=== PATIENT | female | born 1950 | race Caucasian/White ===

== ENCOUNTER 2025-09-30 14:34 | Outpatient (AMB) | payer OTHER, SELFPAY ==
--- NOTE | 2025-09-30 14:36 | MHC.OFFVIS ---
Vital Signs 09/30/25 15:05 Height 5 ft 2 in Weight 205 lb BMI 37.5 BP 142/75 H Blood Pressure Location Rt brachial Position Sitting Pulse 98 Intake Visit Reasons: ostomy reversal 2nd opinion Speech Communication Professor Required: Yes Speech Communication Professor Language: Parker Services: Speech Communication Professor Present Speech Communication Professor Name: Stephen Information Interpreted: non-clinical & clinical Accompanied by: Grand Child Allergies lidocaine Allergy (Severe, Verified 09/30/25 15:06) Unknown morphine Allergy (Severe, Verified 09/30/25 15:06) Unknown Medication List - Last Reconciled 09/30/25 by Keith Fisher MD acetaminophen ER 1,300 mg PO BID albuterol sulfate 2.5 mg inhalation Q6H albuterol sulfate 90 mcg/actuation (Ventolin HFA) 2 puffs inhalation Q4-6H PRN amlodipine 5 mg PO DAILY aspirin 81 mg PO DAILY budesonide-formoterol 160-4.5 mcg/actuation (Symbicort) 2 puffs inhalation BID cetirizine 10 mg PO DAILY PRN cholecalciferol (vitamin D3) 25 mcg PO DAILY donepezil 5 mg PO BEDTIME duloxetine 30 mg PO BID ferrous gluconate 324 mg PO DAILY gabapentin 400 mg PO TID levothyroxine (Synthroid) 25 mcg PO DAILY lisinopril 10 mg PO DAILY metformin ER (Glucophage XR) 500 mg PO QPM mineral oil-iso myristat-water 1 appl topical TID-QID PRN nebulizers As directed omeprazole 20 mg PO DAILY rosuvastatin 20 mg PO DAILY topiramate 25 mg PO DAILY HPI HPI ostomy reversal 2nd opinion: Details: [age] year old female referred for a colostomy check. Apparently had undergone surgery to remove part of her ?colon? as well as the uterus, the gallbladder and what she describes as other organs about 9 years ago in [facility]. She is uncertain as to what exactly the etiology was of her illness at that time but she did mentioned diverticulitis as well. She does state that she did not expect the other organs to be removed then. She is not a very good historian either. She says that she has had this little growth on the bottom part of her stoma which often times bleed and cause some pain and discomfort. Otherwise she says that her colostomy has been functioning well. She apparently also has a history of PEs. [facility] Medical History (Updated 09/30/25 @ 15:13 by Keith Fisher MD) Colostomy in place Grief reaction Personal history of other endocrine, nutritional and metabolic disease Severe obstructive sleep apnea Chronic rhinitis Pre-diabetes Hypertensive chronic kidney disease with stage 1 through stage 4 chronic kidney disease, or unspecified chronic kidney disease History of being hospitalized (~06/2016) History of being hospitalized (~06/2015) Hx of being hospitalized Hx of being hospitalized Osteoarthritis of knee Anxiety Hyperlipidemia Hypothyroidism Depression Obesity Spinal stenosis of lumbosacral region Atypical chest pain SHAMIR (acute kidney injury) (~06/2017) UTI (urinary tract infection) (~06/2017) Bilateral pulmonary embolism (~06/2017) Diverticulosis Migraine Asthma GERD (gastroesophageal reflux disease) Vitamin D deficiency Surgical History H/O exploratory laparotomy (~2016) Hx of surgical procedure (~08/2012) Hx of surgical procedure (~11/2011) History of right inguinal hernia repair (~06/2016) History of tonsillectomy (~1968) History of total right knee replacement (~2009) History of carpal tunnel surgery (~2013) History of bilateral tubal ligation (~1982) History of shoulder surgery (~2012) Hx of surgical procedure (~05/2017) Review of Systems Const Denies chills and Denies fever(s) Card Denies chest pain at rest Resp Denies cough GI Details: Has colostomy, functioning Denies abdominal pain Denies difficulty voiding Physical Exam Vital Signs: Last Vital Signs Pulse 98 09/30/25 15:05 BP 142/75 H 09/30/25 15:05 BMI result Body Mass Index 37.5 Const Other: Morbidly obese General: comfortable and no acute distress Resp Effort & Inspection: normal respiratory effort Cardio Rate: regular rate GI Other: Obese abdomen, ostomy in the left side, with note of multiple hypergranulation areas on the lower part, about 4-5 small polypoid areas of these hypergranulation tissue are noted Palpation (GI): Soft to palpation, not firm, nontender and no guarding Office Procedures Cauterization - Skin lesions Skin Cauter Details: There were about 4 per granulating, polypoid lesions on lower part of the stoma each about 3-4 mm in size. I proceeded to cauterized this with multiple silver nitrate sticks down to a pack eschar. She tolerated procedure well. I will see her again next month and likely we will do more cauterization Destruction: 09998- Chemical Cautery, Granulation Tissue Assessment & Plan Assessment & Plan (1) Colostomy in place: Code(s): Z93.3 - Colostomy status Category: Medical Plan: She has colostomy in place for about 8-9 years now. The diagnosis and the actual procedure done is not certain as the patient is not a good historian She complains of this ?lumps? on the lower part of the colostomy. These are hypergranulation tissue and she says that this bother her with periodic swelling I therefore cauterized this areas of hypergranulation tissue with silver nitrate sticks. She also asked about option of reversal. I explained to her that this comes with significant risks for her especially at her age and multiple medical problems. I will however review of her records in [facility]. I will see her again in the office next month and I told her that we may probably repeat cauterization of the hypergranulation tissue in the stoma opening. She seems to understand the plan well and is comfortable with this. Coding Level of Care Code New Pt Level 3 (27928) Diagnoses Colostomy in place Z93.3 CPT Codes Skin Cauter - Destruction: 09210- Chemical Cautery, Granulation Tissue ([id number])
[2025-09-30 15:05] VITALS: BP 142/75; PULSE 98; BMI 37.5
--- OUTSIDE RECORDS SUMMARY | 2025-09-30 22:58 | XMS_ITS | Clinical Summary ---
Author Organization [facility] Address [address] [place] [address] Phone Care Team Providers Care Pheresis Nurse Name Role Phone [place] Waters TERI Primary Care Provider [phone] Allergies Active Allergy Reactions Criticality Noted Date Comments Codeine Hcl 07/18/2018 Lidocaine Angioedema,Unknown High 09/14/2015 Morphine Unknown,Swelling 09/14/2015 Medications No known medications Active Problems No known active problems Encounters Date Type Department Care Team Description 09/20/2025 12:17 PM EST - 09/20/2025 4:36 PM EST Emergency [facility] Emergency [address] [place] [address] Bo Araiza MD Pre-syncope (Primary Dx) Discharge Disposition: Home or Self Care from Last 3 Months Surgical History Surgery Date Site/Laterality Comments TOTAL KNEE ARTHROPLASTY Right PROCEDURE: [place] ARTHRP KNE CONDYLE&PLATU MEDIAL&LAT COMPARTMENTS SHOULDER SURGERY Left PROCEDURE: HISTORICAL SHOULDER SURGERY TUBAL LIGATION PROCEDURE: HISTORICAL TUBAL LIGATION TONSILLECTOMY PROCEDURE: HISTORICAL TONSILLECTOMY OTHER SURGICAL HISTORY PROCEDURE: SKIN CYST; COMMENT: removal in thebackX2 Medical History Medical History Date Comments HTN (hypertension) DX:HTN (hyper tension) Hyperlipidemia DX:Hyperlipidemi a Anxiety DX:Anxiety OA (osteoarthritis) of knee DX:O A (osteoarthritis) of knee S/P total knee replacement DX:S/ P total knee replacement; COMMENT: right 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 DX:Anacliti c depression Anemia 07/13/2017 DX:Anemia Asthma 07/12/2017 DX:Asthma Gastroesophageal reflux disease 07/09/2017 DX:Gastroesophageal reflux disease Hypertension 07/09/2017 DX:Hypertension Hypothyroidism 07/09/2017 DX:Hypothyroidis m Pulmonary embolism (CMS/HCC V24, CMS/HCC V28) 07/25/2017 DX:Pulmonary embolism (HCC) Back pain, chronic 02/07/2018 DX:Back pain, chronic Headache, migraine 10/30/2017 DX:Headache, migraine Vitamin D deficiency DX:Vitamin D deficiency Diverticulosis DX:Diverticulosi s Bilateral pulmonary embolism (CMS/HCC V24, CMS/HCC V28) 06/2017 DX:Bilateral pulmonary embol ism (HCC); COMMENT: Coumadin anticoagulation Urinary tract infection DX:Urina ry tract infection; COMMENT: w/ SHAMIR Spinal stenosis of lumbosacral region DX:Spinal stenosis of lumbosacral region Obesity DX:Obesity Family History Relation Name Status Comments Father Mother Social History Tobacco Use Types Packs/Day Years Used Date Smoking Tobacco: Former Cigarettes 0.5 50 0 10/22/1960 - 10/22/2010 Smokeless Tobacco: Never Alcohol Use Standard Drinks/Week Comments No 0 (1 standard drink = 0.6 oz pur e alcohol) Comments Unknown Sex and Gender Information Value Date Recorded Sex Assigned at Female 09/25/2024 3:22 AM EST Legal Sex Female 3:09 PM EST Gender Identity Female 09/25/2024 3:22 AM EST Sexual Orientation Straight 09/25/2024 3: 22 AM EST Last Filed Vital Signs Vital Sign Reading Time Taken Comments Blood Pressure 160/82 09/20/2025 4:35 PM EST Pulse 88 09/20/2025 4:35 PM EST Temperature 36.6 C (97.9 F) 09/20/2025 4:35 PM EST Respiratory Rate 16 09/20/2025 4:35 PM EST Oxygen Saturation 98% 09/20/2025 4:35 PM EST Inhaled Oxygen Concentration - - Weight 92.5 kg (204 lb) 09/20/2025 12:36 PM EST Height 157.5 cm (5' 2 ) 09/20/2025 12:36 PM EST Body Mass Index 37.31 09/20/2025 12:36 PM EST Plan of Treatment Health Maintenance Due Date Last Done Comments Colorectal Cancer Screening: Colonoscopy 1950 Cholesterol Screening (Lipid Panel) 09/20/2022 Falls Risk Assessment 09/20/2022 Hepatitis C Screening 09/20/2022 Lung Cancer Screening (Low Dose CT) 09/20/2022 Medicare Annual Wellness Visit 09/20/2022 Osteoporosis Screening (Bone Density Screening) 09/20/2022 Social Influencers of Health Screening 09/20/2022 Depression Screening 10/22/2024 COVID-19 Vaccine ( - season) 2025 11/17/2021, 02/17/2021, 01/17/2021 RSV Immunization Adult Patients (1 - 1-dose 75+ series) 2025 Hypertension/CHF/CAD Annual BMP Blood Test 09/20/2026 09/20/2025, 09/24/2024 DTaP,Tdap,and Td Vaccines (3 - Td or Tdap) 05/30/2031 05/30/2021, 02/26/2009 Breast Cancer Screening Discontinued 07/22/2019 Zoster Vaccines Completed 08/24/2022, 12/01/2021 Pneumococcal Vaccine: 50+ Years Completed 12/27/2022, 12/31/2018, 05/27/2017 Influenza Vaccine Completed 07/28/2025, , 09/06/2023, Additional history exists HIB Vaccines Aged Out No longer eligi ble based on patient's age to complete this topic HPV Vaccines Aged Out No longer eligi ble based on patient's age to complete this topic Hepatitis A Vaccines Aged Out No long er eligible based on patient's age to complete this topic Hepatitis B Vaccines Aged Out No long er eligible based on patient's age to complete this topic IPV Vaccines Aged Out No longer eligi ble based on patient's age to complete this topic MMR Vaccines Aged Out No longer eligi ble based on patient's age to complete this topic Meningococcal ACWY Vaccine Aged Out N o longer eligible based on patient's age to complete this topic Meningococcal B Vaccine Aged Out No l onger eligible based on patient's age to complete this topic RSV Immunization Patients Under 20 months Aged Out No longer eligible based on patient's age to complete this topic Varicella Vaccines Aged Out No longer eligible based on patient's age to complete this topic Procedures Procedure Name Priority Date/Time Associated Diagnosis Comments ECG 12-LEAD STAT 09/20/2025 3:[address] CHEST/ABDOMEN/PELVIS WO CONTRAST STAT 09/20/2025 2:[address] CERVICAL SPINE WO CONTRAST STAT 09/20/2025 2:[address] HEAD WO CONTRAST STAT 09/20/2025 2 :44 PM EST JUNE URINE CULTURE TUBE Routine 09/20/2025 1:57 PM EST EXTRA TUBES Routine 09/20/2025 1:57 PM EST URINALYSIS WITH REFLEX MICROSCOPIC STAT 09/20/2025 1:57 PM EST CBC WITH AUTO DIFFERENTIAL STAT 09/20/2025 1:57 PM EST BASIC METABOLIC PANEL STAT 09/20/2025 1:57 PM EST URINALYSIS WITH REFLEX MICROSCOPIC STAT 09/20/2025 1:57 PM EST TROPONIN I HIGH SENSITIVITY STAT 09/20/2025 1:57 PM EST CBC AND DIFFERENTIAL STAT 09/20/2025 1:57 PM EST TYLOR SCREENING DIGITAL Routine 07/22/2019 4:16 PM EDT Encounter for screening mammogram for malignant neoplasm of breast from Last 3 Months or Most Recently Relevant to Health Maintenance Results * 12-Lead ECG (09/20/2025 3:23 PM EST) Ventricular Rate ECG 64 BPM GEMUSE Atrial Rate 64 BPM GEMUSE P-R Interval 158 ms GEMUSE QRS Duration 84 ms GEMUSE Q-T Interval 440 ms GEMUSE QTc 453 ms GEMUSE P Wave Kempner 37 degrees GEMUSE R [place] 5 degrees GEMUSE T [place] 26 degrees GEMUSE ECG Interpretation Normal sinus rhythm Nonspecific T wave abnormality Abnormal ECG When compared with ECG of 24-SEP-2024 21:08, Nonspecific T wave abnormality now evident in Anterior leads Confirmed by SHANNEN DHALIWAL ([id number]) on 09/22/2025 9:26:14 AM GEMUSE 09/20/2025 3:23 PM EST 09/22/2025 9:26 AM EST us Bo Araiza MD ECG ORDERABLES Final Resu lt GEMUSE * CT Chest/Abdomen/Pelvis wo Contrast (09/20/2025 2:44 PM EST) Anatomical Region Laterality Modality Body Computed Tomogra phy 09/20/2025 3:22 PM EST Impressions 09/20/2025 3:28 PM EST No acute traumatic injury in the chest, abdomen, or pelvis. -------- FINAL REPORT -------- Dictated By: ROHAN FOREMAN Dictated Date: 09/20/2025 15:22 ET Assigned Physician: ROHAN FOREMAN Reviewed and Electronically Signed By: ROHAN FOREMAN Signed Date: 09/20/2025 15:28 ET Workstation ID: [id number] Transcribed By: Self Edit Transcribed Date: 09/20/2025 15:22 ET Narrative 09/20/2025 3:28 PM EST PROCEDURE: Chest, abdomen, and pelvis CT INDICATION: Pain, fall TECHNIQUE: Chest, abdomen, and pelvis CT without contrast. Multi planar reformats were created and interpreted. The examination was performed utilizing dose reduction techniques. Total DLP 1966 COMPARISON: 11/06/2020 FINDINGS: Chest: Central airways are patent. Mild paraseptal and centrilobular emphysema. No pleural effusion or pneumothorax. Thyroid gland is normal. No mediastinal or hilar lymphadenopathy. Small hiatal hernia. Cardiac chambers are normal in size. No pericardial effusion. Minimal coronary artery calcifications. Aortic valvular calcification. No axillary adenopathy or soft tissue mass. Left rotator cuff repair bone anchors in place. Degenerative changes at the humeral joints. No acute fracture. Degenerative changes are seen throughout the thoracic spine. Abdomen/pelvis: Hepatic steatosis. No focal liver lesions. Gallbladder and biliary tree are within normal limits. Pancreas, spleen, and adrenal glands are normal. Right renal cysts. No hydronephrosis or renal/ureteral calculi. Abdominal aorta is normal in size. No retroperitoneal or mesenteric lymphadenopathy. Hysterectomy. Bladder is normal. Partial colectomy with left colostomy. Colonic diverticulosis. Appendectomy. No bowel obstruction or wall thickening. No ascites, fluid collection, or free intraperitoneal air. Small fat-containing parastomal hernia. No superficial hematoma or soft tissue mass. Degenerative changes seen throughout the bones. No acute fracture. Dextroconvex lumbar curvature. Procedure Note Rohan Foreman MD - 09/20/2025 PROCEDURE: Chest, abdomen, and pelvis CT INDICATION: Pain, fall TECHNIQUE: Chest, abdomen, and pelvis CT without contrast. Multi planarreformats were created and interpreted. The examination was performedutilizing dose reduction techniques. Total DLP 1965 COMPARISON: 11/06/2020 FINDINGS: Chest: Central airways are patent. Mild paraseptal and centrilobular emphysema.No pleural effusion or pneumothorax. Thyroid gland is normal. No mediastinal or hilar lymphadenopathy. Smallhiatal hernia. Cardiac chambers are normal in size. No pericardialeffusion. Minimal coronary artery calcifications. Aortic valvularcalcification. No axillary adenopathy or soft tissue mass. Left rotator cuff repair bone anchors in place. Degenerative changes atthe humeral joints. No acute fracture. Degenerative changes are seenthroughout the thoracic spine. Abdomen/pelvis: Hepatic steatosis. No focal liver lesions. Gallbladder and biliary treeare within normal limits. Pancreas, spleen, and adrenal glands are normal. Right renal cysts. No hydronephrosis or renal/ureteral calculi. Abdominal aorta is normal in size. No retroperitoneal or mesentericlymphadenopathy. Hysterectomy. Bladder is normal. Partial colectomy with left colostomy. Colonic diverticulosis.Appendectomy. No bowel obstruction or wall thickening. No ascites, fluid collection, or free intraperitoneal air. Small fat-containing parastomal hernia. No superficial hematoma or softtissue mass. Degenerative changes seen throughout the bones. No acute fracture.Dextroconvex lumbar curvature. IMPRESSION: No acute traumatic injury in the chest, abdomen, or pelvis. -------- FINAL REPORT -------- Dictated By: ROHAN FOREMAN Dictated Date: 09/20/2025 15:22 ET Assigned Physician: ROHAN FOREMAN Reviewed and Electronically Signed By: ROHAN FOREMAN Signed Date: 09/20/2025 15:28 ET Workstation ID: [id number] Transcribed By: Self Edit Transcribed Date: 09/20/2025 15:22 ET Bo Araiza MD [facility] [place]EDURES Final Re sult * CT Cervical Spine wo Contrast (09/20/2025 2:44 PM EST) Anatomical Region Laterality Modality Spine, C-spine Computed Tomogra phy 09/20/2025 3:16 PM EST Impressions 09/20/2025 3:19 PM EST No acute cervical spine fracture. -------- FINAL REPORT -------- Dictated By: ROHAN FOREMAN Dictated Date: 09/20/2025 15:16 ET Assigned Physician: ROHAN FOREMAN Reviewed and Electronically Signed By: ROHAN FOREMAN Signed Date: 09/20/2025 15:19 ET Workstation ID: [id number] Transcribed By: Self Edit Transcribed Date: 09/20/2025 15:16 ET Narrative 09/20/2025 3:19 PM EST PROCEDURE: Cervical spine CT INDICATION: Pain, fall TECHNIQUE: Noncontrast CT of the cervical spine with multiplanar reformats. The examination was performed utilizing dose reduction techniques. Total DLP 1574 COMPARISON: No priors available. FINDINGS: No acute fracture or prevertebral swelling. Reversal of the normal cervical lordosis centered at C4-5. Mild anterolisthesis at C2-3, C3-4, and C7-T1 related to degenerative facet arthropathy. Multilevel degenerative changes are seen throughout the cervical spine with uncovertebral spurring and facet arthropathy present. Posterior disc osteophyte complex at C6-7 contributing to spinal canal stenosis. Severe foraminal stenosis at several levels due to uncovertebral spurring, most pronounced on the right at C3-4, C4-5, and C6-7 as well as on the left at C4-5. No pneumothorax at the lung apices. Paraspinal muscles are within normal limits. Procedure Note Rohan Foreman MD - 09/20/2025 PROCEDURE: Cervical spine CT INDICATION: Pain, fall TECHNIQUE: Noncontrast CT of the cervical spine with multiplanarreformats. The examination was performed utilizing dose reduction techniques. TotalDL 1574 COMPARISON: No priors available. FINDINGS: No acute fracture or prevertebral swelling. Reversal of the normal cervical lordosis centered at C4-5. Mildanterolisthesis at C2-3, C3-4, and C7-T1 related to degenerative facetarthropathy. Multilevel degenerative changes are seen throughout the cervical spinewith uncovertebral spurring and facet arthropathy present. Posterior discosteophyte complex at C6-7 contributing to spinal canal stenosis. Severeforaminal stenosis at several levels due to uncovertebral spurring, mostpronounced on the right at C3- 4, C4-5, and C6-7 as well as on the left atC4-5. No pneumothorax at the lung apices. Paraspinal muscles are within normallimits. IMPRESSION: No acute cervical spine fracture. -------- FINAL REPORT -------- Dictated By: ROHAN FOREMAN Dictated Date: 09/20/2025 15:16 ET Assigned Physician: ROHAN FOREMAN Reviewed and Electronically Signed By: ROHAN FOREMAN Signed Date: 09/20/2025 15:19 ET Workstation ID: [id number] Transcribed By: Self Edit Transcribed Date: 09/20/2025 15:16 ET Bo Araiza MD [facility] [place] PROCEDURES Final Re sult * CT Head wo Contrast (09/20/2025 2:44 PM EST) Anatomical Region Laterality Modality Head and Neck Computed Tomogra phy 09/20/2025 3:14 PM EST Impressions 09/20/2025 3:16 PM EST No acute intracranial abnormality. -------- FINAL REPORT -------- Dictated By: ROHAN FOREMAN Dictated Date: 09/20/2025 15:14 ET Assigned Physician: ROHAN FOREMAN Reviewed and Electronically Signed By: ROHAN FOREMAN Signed Date: 09/20/2025 15:16 ET Workstation ID: [id number] Transcribed By: Self Edit Transcribed Date: 09/20/2025 15:14 ET Narrative 09/20/2025 3:16 PM EST PROCEDURE: HEAD CT INDICATION: Fall TECHNIQUE: CT of the head without intravenous contrast. Multiplanar reformats. The examination was performed utilizing dose reduction techniques. Total DLP 1574 COMPARISON: No priors available. FINDINGS: No acute territorial infarct, mass effect, or intracranial hemorrhage. Mild scattered periventricular and subcortical white matter hypodensities are most likely related to chronic small vessel ischemic change. Ventricles are normal in size. No hydrocephalus. Visualized paranasal sinuses and mastoid air cells are clear. No scalp hematoma or skull fracture. Procedure Note Rohan Foreman MD - 09/20/2025 PROCEDURE: HEAD CT INDICATION: Fall TECHNIQUE: CT of the head without intravenous contrast. Multiplanarreformats. The examination was performed utilizing dose reductiontechniques. Total DLP 1574 COMPARISON: No priors available. FINDINGS: No acute territorial infarct, mass effect, or intracranial hemorrhage. Mild scattered periventricular and subcortical white matter hypodensitiesare most likely related to chronic small vessel ischemic change. Ventricles are normal in size. No hydrocephalus. Visualized paranasal sinuses and mastoid air cells are clear. No scalp hematoma or skull fracture. IMPRESSION: No acute intracranial abnormality. -------- FINAL REPORT -------- Dictated By: ROHAN FOREMAN Dictated Date: 09/20/2025 15:14 ET Assigned Physician: ROHAN FOREMAN Reviewed and Electronically Signed By: ROHAN FOREMAN Signed Date: 09/20/2025 15:16 ET Workstation ID: [id number] Transcribed By: Self Edit Transcribed Date: 09/20/2025 15:14 ET Bo Araiza MD [facility] [place]EDURES Final Re sult * (ABNORMAL) Urinalysis with reflex microscopic (09/20/2025 1:57 PM EST) Specific [place] Urine 1.029 1.003 - 1.030 LAB URINALYSIS - AUTOMATED METHOD 09/20/2025 2:21 PM EST [facility] pH, Urine 5.5 5.0 - 8.0 pH LAB URINALYSIS - AUTOMATED METHOD 09/20/2025 2:21 PM EST [facility] Leukocytes, Urine Small(A) Negative LAB URINALYSIS - AUTOMATED METHOD 09/20/2025 2:21 PM [facility] Nitrite, Urine Negative Negative LAB URINALYSIS - AUTOMATED METHOD 09/20/2025 2:21 PM [facility] Protein, Urine Trace <=Trace mg/dL LAB URINALYSIS - AUTOMATED METHOD 09/20/2025 2:21 PM [facility] Glucose, Urine Negative Negative mg/dL LAB URINALYSIS - AUTOMATED METHOD 09/20/2025 2:21 PM [facility] Ketones, Urine Trace(A) Negative mg/dL LAB URINALYSIS - AUTOMATED METHOD 09/20/2025 2:21 PM [facility] Urobilinogen, Urine 0.2 0.2 - 1.0 mg/dL LAB URINALYSIS - AUTOMATED METHOD 09/20/2025 2:21 PM [facility] Bilirubin, Urine Negative Negative LAB URINALYSIS - AUTOMATED METHOD 09/20/2025 2:21 PM [facility] Blood, Urine Negative Negative LAB URINALYSIS - AUTOMATED METHOD 09/20/2025 2:21 PM [facility] RBC, Urine 1 0 - 4 /HPF 09/20/2025 2:21 PM [facility] WBC, Urine 2 0 - 4 /HPF 09/20/2025 2:21 PM [facility] Squamous Epithelial, Urine 25 0 - 60 /LPF 09/20/2025 2:21 PM [facility] Bacteria, Urine Few(A) Negative /HPF 09/20/2025 2:21 PM [facility] Hyaline Casts, Urine 1 0 - 3 /LPF 09/20/2025 2:21 PM [facility] Urine Urine specimen obtained by clean catch procedure / Unknown Non-blood Collection / Unknown 09/20/2025 1:57 PM EST 09/20/2025 2:04 PM EST us Bo Araiza MD LAB URINE ORDERABLES Final Result Performing Organization Address [facility] Co de Phone Number [facility] [address] [place] [address], [place] [phone] * June urine culture tube (09/20/2025 1:57 PM EST) [facility] Extra Tube Hold for add-ons. 09/20/2025 4:01 PM EST [facility] Comment:Auto resulted. Urine Urine specimen obtained by clean catch procedure / Unknown 09/20/2025 1:57 PM EST 09/20/2025 2:04 PM EST us Bo Araiza MD LAB URINE ORDERABLES Final Result Performing Organization Address [facility] Phone Number [facility] [address] [place] [address], [place] [phone] * Troponin I high sensitivity (09/20/2025 1:57 PM EST) [facility] High Sensitivity Troponin I 4 <=34 ng/L 09/20/2025 2:34 PM EST [facility] Blood Venous blood specimen / Unknown Venipuncture / Unknown 09/20/2025 1:57 PM EST 09/20/2025 2:04 PM EST us Bo Araiza MD LAB BLOOD ORDERABLES Final Result Performing Organization Address [facility] Co de Phone Number [facility] [address] [place] [address], [place] [phone] * (ABNORMAL) CBC auto differential (09/20/2025 1:57 PM EST) [facility] WBC 5.3 4.8 - 10.8 K/mcL LAB HEMETOLOGY METHOD 09/20/2025 2:11 PM [facility] RBC 4.30 3.80 - 4.80 M/mcL LAB HEMETOLOGY METHOD 09/20/2025 2:11 PM [facility] Hemoglobin 12.5 11.5 - 16.0 g/dL LAB HEMETOLOGY METHOD 09/20/2025 2:11 PM [facility] Hematocrit 41.1 35.0 - 47.0 % LAB HEMETOLOGY METHOD 09/20/2025 2:11 PM [facility] MCV 94.7 79.0 - 98.0 FL LAB HEMETOLOGY METHOD 09/20/2025 2:11 PM [facility] MCH 28.8 27.0 - 32.0 pcg LAB HEMETOLOGY METHOD 09/20/2025 2:11 PM [facility] MCHC 30.4(L) 32.0 - 37.0 g/dL LAB HEMETOLOGY METHOD 09/20/2025 2:11 PM [facility] RDW 13.4 11.0 - 15.0 % LAB HEMETOLOGY METHOD 09/20/2025 2:11 PM [facility] Platelets 252 130 - 400 K/mcL LAB HEMETOLOGY METHOD 09/20/2025 2:11 PM [facility] MPV 10.2 7.0 - 11.0 FL LAB HEMETOLOGY METHOD 09/20/2025 2:11 PM [facility] NRBC 0.0 <1.0 % LAB HEMETOLOGY METHOD 09/20/2025 2:11 PM [facility] NRBC Absolute 0.00 <0.10 K/mcL LAB HEMETOLOGY METHOD 09/20/2025 2:11 PM [facility] Neutrophils Relative 57.9 % LAB HEMETOLOGY METHOD 09/20/2025 2:11 PM [facility] Lymphocytes Relative 32.1 % LAB HEMETOLOGY METHOD 09/20/2025 2:11 PM [facility] Monocytes Relative 4.9 % LAB HEMETOLOGY METHOD 09/20/2025 2:11 PM [facility] Eosinophils Relative 4.5 % LAB HEMETOLOGY METHOD 09/20/2025 2:11 PM [facility] Basophils Relative 0.4 % LAB HEMETOLOGY METHOD 09/20/2025 2:11 PM [facility] Immature Granulocytes Relative 0.2 % LAB HEMETOLOGY METHOD 09/20/2025 2:11 PM [facility] Neutrophils Absolute 3.06 1.50 - 7.00 K/mcL LAB HEMETOLOGY METHOD 09/20/2025 2:11 PM [facility] Lymphocytes Absolute 1.70 1.00 - 5.00 K/mcL LAB HEMETOLOGY METHOD 09/20/2025 2:11 PM [facility] Monocytes Absolute 0.26 0.20 - 1.00 K/mcL LAB HEMETOLOGY METHOD 09/20/2025 2:11 PM [facility] Eosinophils Absolute 0.24 0.00 - 0.50 K/mcL LAB HEMETOLOGY METHOD 09/20/2025 2:11 PM [facility] Basophils Absolute 0.02 0.00 - 0.20 K/mcL LAB HEMETOLOGY METHOD 09/20/2025 2:11 PM [facility] Immature Granulocytes Absolute 0.01 0.00 - 0.03 K/mcL LAB HEMETOLOGY METHOD 09/20/2025 2:11 PM [facility] Blood Venous blood specimen / Unknown Venipuncture / Unknown 09/20/2025 1:57 PM EST 09/20/2025 2:04 PM EST Bo Araiza MD LAB BLOOD ORDERABLES Final Result [facility] [address] [place] [address], * (ABNORMAL) Basic Metabolic Panel (BMP) (09/20/2025 1:57 PM EST) Sodium 142 133 - 145 mmol/L 09/20/2025 2:28 PM EST [facility] Potassium 4.1 3.5 - 5.5 mmol/L 09/20/2025 2:28 PM [facility] Chloride 106 96 - 110 mmol/L 09/20/2025 2:28 PM EST [facility] CO2 27 21 - 32 mmol/L 09/20/2025 2:28 PM [facility] Anion Gap 9 3 - 11 09/20/2025 2:28 PM [facility] Glucose 100 70 - 100 mg/dL 09/20/2025 2:28 PM [facility] BUN 21 5 - 25 mg/dL 09/20/2025 2:28 PM [facility] Creatinine 1.06 0.50 - 1.10 mg/dL 09/20/2025 2:28 PM [facility] eGFR 55(L) >=60 mL/min/1. 73m2 09/20/2025 2:28 PM [facility] Comment:Calculation based on the Chronic Kidney Disease Epidemiology Collaboration (CKD-EPI) equation refit without adjustment for race. BUN/Creatinine Ratio 19.8 09/20/2025 2:28 PM [facility] Calcium 8.6 8.5 - 10.5 mg/dL 09/20/2025 2:28 PM [facility] Blood Venous blood specimen / Unknown Venipuncture / Unknown 09/20/2025 1:57 PM EST 09/20/2025 2:04 PM EST us Bo Araiza MD LAB BLOOD ORDERABLES Final Result [facility] [address] [place] [address], * TYLOR SCREENING DIGITAL (07/22/2019 4:16 PM EDT) Anatomical Region Laterality Modality Mammography 07/22/2019 2:11 PM EDT Narrative 07/22/2019 4:16 PM EDT [facility] Diagnostic Imaging Department [address] [place] [address] Patient: BLAIRE ZAIDI /Age/Sex: 1950 - 68 - F Unit#: [id number] Location/Status: SPDIMAM/REG CLI Mnemonic/Ordering Site: [facility] Ordering Physician: TESHA GRANT APRN Tylor Screening Digital - 07/22/19 - 1437 EXAM: Tylor Screening Digital EXAM DATE AND TIME: 07/22/2019 2:38 PM HISTORY: Screening. Sister had breast carcinoma. COMPARISON: 05/08/16, 05/06/15 and earlier studies dating back to 2010. TECHNIQUE: CC and MLO views of both breasts were obtained using full field digital mammography. Bilateral digital breast tomosynthesis was performed in the MLO projection. Computer aided detection with the Virtual DBS 7.2-H was employed. TISSUE DENSITY: a. The breasts are almost entirely fatty. FINDINGS: No suspicious masses, grouped microcalcifications, or areas of architectural distortion are seen. An 11 mm circumscribed round mass remains stable in the posterior 6 to 7:00 position of the right breast, considered benign. Benign rim calcifications are again seen bilaterally. There is vascular calcification. The skin is unremarkable. IMPRESSION: Stable mammographic appearance of the breasts. No evidence of malignancy is seen. A negative mammogram in the presence of a clinically suspicious palpable abnormality does not preclude the possibility of malignancy or alter the indications for biopsy. BI-RADS: Category 2: Benign RECOMMENDATION(S): 1: Routine screening mammogram BILATERAL in 1 year. 75781, [id number] 3342F, 7025F Dictating Physician: RADHA VILLALOBOS MD Electronically Signed by: RADHA VILLALOBOS MD Dic Date/Time: 07/22/191614 Sign date/Time: 07/22/191615 Procedure Note Radha Villalobos - 10/10/2022 [facility] Diagnostic Imaging Department [address] [place] [address] Patient: BERNARDOBLAIRE /Age/Sex: 1950 - 68 - F Unit#: [id number] [facility]ing [facility] Ordering Physician: TESHA GRANT APRN [facility] Screening Digital - 07/22/19 - 1437 EXAM: [facility] Screening Digital EXAM DATE AND TIME: 07/22/2019 2:38 PM HISTORY: Screening. Sister had breast carcinoma. COMPARISON: 05/08/16, 05/06/15 and earlier studies dating back to 2010. TECHNIQUE: CC and MLO views of both breasts were obtained using fullfield digital mammography. Bilateral digital breast tomosynthesis was performedin the MLO projection. Computer aided detection with the [employer] employed. TISSUE DENSITY: a. The breasts are almost entirely fatty. FINDINGS: No suspicious masses, grouped microcalcifications, or areas ofarchitectural distortion are seen. An 11 mm circumscribed round mass remains stable inthe posterior 6 to 7:00 position of the right breast, considered benign. Benign rim calcifications are again seen bilaterally. There is vascular calcification. The skin is unremarkable. IMPRESSION: Stable mammographic appearance of the breasts. No evidence of malignancyis seen. A negative mammogram in the presence of a clinically suspicious palpable abnormality does not preclude the possibility of malignancy or alter the indications for biopsy. BI-RADS: Category 2: Benign RECOMMENDATION(S): 1: Routine screening mammogram BILATERAL in 1 year. 76232, 23552 3342F, 7025F Dictating Physician: RADHA VILLALOBOS MD Electronically Signed by: RADHA VILLALOBOS MD Dic Date/Time: 07/22/19 1615 Sign date/Time: 07/22/19 1616 Tesha Grant APN IM BI PROCEDURES Final Result from Last 3 Months or Most Recently Relevant to Health Maintenance Insurance [facility] MEDICARE Member Subscriber Plan / Payer (Ef fective 2020-Present) Name:Blaire Zaidi Relation to Subscriber:Self Name:Blaire Zaidi Payer ID:[id number] Group ID:[id number] Type:Not on file Address: [place] [address] [place] [address] [phone] Care Teams Pheresis Nurse Relationship Specialty Start Date End Date Celina Waters FNP PCP - General Internal Medicine 05/31/21
--- OUTSIDE RECORDS SUMMARY | 2025-09-30 22:58 | XMS_ITS | Clinical Summary ---
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 0 07/10/2018 Active D3-1000 1000 units capsule Take by mouth daily. 2 07/09/2018 Active Cyanocobalamin (B-12) 1000 MCG TBCR Take 1 tablet by mouth daily. as directed 3 07/09/2018 Active DOCQLACE 100 MG capsule TAKE ONE CAPSULE BY MOUTH 2 (two) times a day NEEDED 6 07/09/2018 Active ferrous gluconate (FERGON) 324 MG tablet Take 1 tablet by mouth daily. 3 07/09/2018 Active ADVAIR HFA 230-21 MCG/ACT inhaler INHALE 2 PUFF BY MOUTH EVERY TWELVE HOURS (IN THE MORNING AND IN THE EVENING) 6 07/09/2018 Active gabapentin (NEURONTIN) 300 MG capsule TAKE ONE CAPSULE BY MOUTH AT BEDTIME 1 07/09/2018 Active levothyroxine (SYNTHROID, LEVOXYL) tablet 25 mcg Take 25 mcg by mouth daily. 3 07/09/2018 Active Hospital, Clinic, or Other Facility Administered Medication Ordered Dose Route Frequency Start Date End Date Status methylPREDNISolone acetate (DEPO-Medrol) injection 40 mgIndications:Arthritis of knee, left 40 mg IX Once 07/18/2018 Active Active Problems Problem Noted Date Diagnosed Date Arthritis of knee, left 07/18/2018 Family History Medical History Relation Name Comments Heart disease Mother Heart disease Sister Relation Name Status Comments Mother Sister Social History Tobacco Use Types Packs/Day Years Used Date Smoking Tobacco: Former Smokeless Tobacco: Never Alcohol Use Standard Drinks/Week Comments No 0 (1 standard drink = 0.6 oz pur e alcohol) Sex and Gender Information Value Date Recorded Sex Assigned at Not on file Gender Identity Not on file Sexual Orientation Not on file Last Filed Vital Signs Vital Sign Reading Time Taken Comments Blood Pressure - - Pulse - - Temperature - - Respiratory Rate - - Oxygen Saturation - - Inhaled Oxygen Concentration - - Weight 97.1 kg (214 lb) 07/18/2018 2:11 PM EDT Height 157.5 cm (5' 2 ) 07/18/2018 2:11 PM EDT Body Mass Index 39.14 07/18/2018 2:11 PM EDT Plan of Treatment Health Maintenance Due Date Last Done Comments Hepatitis C Screening 1950 COVID-19 Vaccine (#1) 03/13/1951 Depression Screening 1962 Preventative Health Evaluation 1968 DTap / Tdap / Td (1 - Tdap) 1969 Colon Cancer Screening (Colonoscopy) 1995 Shingrix-Zoster Vaccine (1 of 2) 2000 Fall Risk Assessment 2015 Osteoporosis Screening (DEXA Scan) 2015 Pneumococcal Vaccine (1 of 1 - PCV) 2015 Influenza Vaccine (#1) 2025 RSV Adult > 60+ Yrs or Pregn ant (1 - 1-dose 75+ series) 2025 Hepatitis B Vaccines Aged Out No long er eligible based on patient's age to complete this topic RSV Ped < 20 months Aged Out No longe r eligible based on patient's age to complete this topic
--- OUTSIDE RECORDS SUMMARY | 2025-09-30 22:58 | XMS_ITS | Clinical Summary ---
Author Organization [facility] Address [address] [address] Phone Care Team Providers Care Cpas Name Role Phone Saranya Mathias MD Primary Care Pro vider Social History Tobacco Use Types Packs/Day Years Used Date Smoking Tobacco: Never Assessed Education Answer Date Recorded Are you interested in more education? Not on zbigniew e 09/04/2024 Are you concerned about learning? Not on file 09/04/2024 No 09/04/2024 No 09/04/2024 Digital Access Answer Date Recorded No 09/04/2024 No 09/04/2024 Reliable internet access at home? Not on file 09/04/2024 Device with a working camera? Not on file Comments Unknown Sex and Gender Information Value Date Recorded Sex Assigned at Not on file Legal Sex Female 4:38 PM EDT Gender Identity Not on file Sexual Orientation Not on file Plan of Treatment Health Maintenance Due Date Last Done Comments Adult Td,Tdap Booster 1950 LIPID PANEL 1950 DEPRESSION SCREENING 1962 SMOKING Hx and SMOKELESS TOB ACCO SCREENING 1963 HEPATITIS C SCREENING 1968 COLOGUARD 1995 COLONOSCOPY 1995 COLORECTAL CANCER SCREENING 1995 FIT TEST 1995 FOBT 1995 SIGMOIDOSCOPY 1995 VIRTUAL COLONOSCOPY 1995 PNEUMOCOCCAL VACCINES (50+ y ears) (1 of 1 - PCV) 2000 ZOSTER VACCINES (1 of 2) 2000 OSTEOPOROSIS SCREENING INITI AL (ONE-TIME) 2015 INFLUENZA VACCINE (#1) 2025 COVID-19 VACCINE (2024-2 6 season) 2025 RSV VACCINE (1 - 1-dose 75+ series) 2025 HEPATITIS A VACCINES Aged Out No long er eligible based on patient's age to complete this topic HIB VACCINES Aged Out No longer eligi ble based on patient's age to complete this topic MENINGOCOCCAL VACCINES (ACWY) Aged Out No longer eligible based on patient's age to complete this topic MENINGOCOCCAL VACCINES (B) Aged Out N o longer eligible based on patient's age to complete this topic Medical Devices Not on file Insurance [facility] [employer] MEDICARE REPLACEMENT [address] [address] [id number] Care Teams Cpas Relationship Specialty Start Date End Date Saranya Mathias MD [address] [facility] [address] [place] [phone] PCP - General 08/20/24 Additional Source Comments The information contained in this document represents components of the legal health record. It is not the complete legal health record.[facility]
--- OUTSIDE RECORDS SUMMARY | 2025-09-30 22:58 | XMS_ITS ---
Author Name [facility] Organization Unknown Encounters Encounter Type Encounter Reason Primary Diagnosis Location Date Ambulatory [facility] [place] 09/12/2023 Ambulatory [facility] [place] 08/08/2023 Ambulatory [facility] [place] 07/04/2023 Ambulatory [facility] [place] 05/21/2023 Ambulatory [facility] [place] 05/21/2023
== END 2025-09-30 15:11 | disposition home or self-care (01) ==
LOC: HO.HGS 14:35
PROVIDERS: PCP Internal Medicine; Visit Provider Surgery
DX: Z93.3 Colostomy status (principal)
CPT/HCPCS: 17250; 99203

== ENCOUNTER → 2025-09-30 14:34 | Outpatient (BNVA) | payer OTHER, SELFPAY | PROVIDERS: PCP Internal Medicine; Visit Provider Surgery | DX: Z48.815 Encounter for surgical aftercare following surgery on the digestive system (principal); L92.8 Other granulomatous disorders of the skin and subcutaneous tissue; Z93.3 Colostomy status | CPT/HCPCS: 17250; 99202 ==